=== PATIENT | female | born 1990 | race Caucasian/White ===

== ENCOUNTER 2016-07-11 16:13 | Outpatient (CLI) | payer OTHER ==
[~2016-07-11] VITALS: Ht 149.9 cm; Wt 78.5 kg
[2016-07-11 16:25] VITALS: Ht 149.9 cm; Wt 78.5 kg
[2016-07-11 16:27] VITALS: BP 136/73; PULSE 100; RESP 18
--- NOTE | 2016-07-11 16:59 | RADRPT ---
PROCEDURE: US OB biophysical profile. CLINICAL INDICATION: decreased movements TECHNIQUE: Multiple sonographic images of the pelvis were obtained. The images were reviewed on a PACS workstation. COMPARISON: No prior studies are available for comparison. FINDINGS: There is a single viable intrauterine gestation. Cardiac activity is present with 154 beats per min trinh. There is a vertex presentation. The placenta is anterior. There is no evidence of placental abruption. There is a normal amount of amniotic fluid with an CARLA = 18.7 cm. Biophysical profile: movement 2/2 tone 2/2. breathing 2/2 CARLA 2/2 Total 10/01 RPTAT: AA . IMPRESSION: Normal biophysical profile. . .Bubba Duran MD, MD Date Time Electronically viewed and signed by .Bubba Duran MD, MD on 07/11/2016 16:59 .S/
[2016-07-11 17:25] LABS: ALBUMIN 3.4 g/dl (3.3-4.9); INR 0.91; PROTIME 12.2 Sec (12.2-14.2)
[2016-07-11 17:26] LABS: PARTIAL THROMBOPLASTIN TIME 35.6 Sec (25.0-35.0); POTASSIUM 4.1 mmol/L (3.5-5.1)
[2016-07-11 17:28] LABS: BILIRUBIN,INDIRECT 0.1 mg/dl (0-1.1); BILIRUBIN,TOTAL 0.1 mg/dl (0.2-1.3); CREATININE 0.57 mg/dl (0.44-1.00); TOTAL PROTEIN 6.8 g/dl (6.1-8.1)
[2016-07-11 17:29] LABS: CALCIUM 8.9 mg/dl (8.4-10.2); URIC ACID 3.6 mg/dl (3.1-7.9)
--- NOTE | 2016-07-11 19:06 | QN ---
Documentation Comment Laboratory Tests Test 07/11/16 16:50 Prothrombin Time 12.2Sec Prothrombin Time Ratio 1.0 INR International Normalized Ratio 0.91 Activated Partial Thromboplast Time 35.6Sec Sodium Level 137mmol/L Potassium Level 4.1mmol/L Chloride Level 103mmol/L Carbon Dioxide Level 22mmol/L Anion Gap 16 Blood Urea Nitrogen 9mg/dl Creatinine 0.57mg/dl Glucose Level 124mg/dl Uric Acid 3.6mg/dl Calcium Level 8.9mg/dl Total Bilirubin 0.1mg/dl Direct Bilirubin 0.00mg/dl Indirect Bilirubin 0.1mg/dl Aspartate Amino Transf (AST/SGOT) 20IU/L Alanine Aminotransferase (ALT/SGPT) 30IU/L Alkaline Phosphatase 146IU/L Total Protein 6.8g/dl Albumin 3.4g/dl Globulin 3.40g/dl Albumin/Globulin Ratio 1.00 This is a26 years old female 1 para 0 EDC August 31, 2016 came to the triage unit with chief complaint of chest and abdominal itching started 3 or 4 days ago and it seems getting worse, on admission bpp. 10/01 CMP within normal blood drawn for bile acid the results want be available for 5-6 days possibility of cholestasis of discussed with her, a prescription of ursodiol 300 mg 3 times daily, also recommended to try Benadryl 25 mg 3 times daily, return to triage on July 13 to repeat BPP. CAMILLE KEMP MD July 11, 2016 19:05
--- NOTE | 2016-07-11 19:34 | TRIAGE ---
OB Triage Datetime Report Generated by CPN: 07/11/2016 19:34 Datetime: 07/11/2016 18:46 Labor Evaluation Frequency: 0 Monitor Mode: External Pattern: Normal: <= 5 Contractions in 10 Minutes Resting Tone [place]: Relaxed Heart Rate FHR Baseline Rate: 145 FHR Baseline Changes: No Baseline Change Variability: Moderate 6-25 bpm Accelerations: 15X15 Decelerations: None Pain Assessment Pain Scale: 0 Pain Presence: None/Denies Pain Type: N/A Datetime: 07/11/2016 18:00 Maternal Assessment Level of Consciousness: Fully Conscious Headache: Denies Blurred Vision: No Nausea/Vomiting: Denies RUQ Epigastric Pain: Denies Facial Edema: None Labor Evaluation Frequency: X1 Monitor Mode: External Duration (sec)2399: 60 Quality: Mild Pattern: Normal: <= 5 Contractions in 10 Minutes Resting Tone [place]: Relaxed Heart Rate FHR Baseline Rate: 145 Monitor Mode: External US FHR Baseline Changes: No Baseline Change Variability: Moderate 6-25 bpm Accelerations: 15X15 Decelerations: None Pain Assessment Pain Scale: 0 Pain Presence: None/Denies Pain Type: N/A Datetime: 07/11/2016 17:29 Monitor Mode: External Monitor Mode: External US Datetime: 07/11/2016 17:06 Headache: Denies Blurred Vision: No Facial Edema: None Labor Evaluation Frequency: none Pattern: Normal: <= 5 Contractions in 10 Minutes Heart Rate FHR Baseline Rate: 150 Monitor Mode: External US FHR Baseline Changes: No Baseline Change Variability: Moderate 6-25 bpm Accelerations: 15X15 Decelerations: None Category: Category I Pain Presence: None/Denies Vaginal Exam Membrane Status: Intact Datetime: 07/11/2016 16:22 Stage of : OB Triage Maternal Assessment Level of Consciousness: Fully Conscious DTR's/Clonus: DTRs 2+; No Clonus Headache: Denies Blurred Vision: No Respiratory Effort: Unlabored; Regular Rhythm; Equal Expansion Breath Sounds, Left: Clear and Equal Breath Sounds, Right: Clear and Equal Nausea/Vomiting: Denies RUQ Epigastric Pain: Denies Lower Extremities Edema: None Degree: None Upper Extremities Edema: None Degree: None Facial Edema: None Temperature Route: Axillary Fall Risk Assessment History of Falling: (0) No Secondary Diagnosis: (0) No Ambulatory Aid: (0) Bedrest/Nurse Assist IV Therapy: (0) No Gait: (0) Normal/Bedrest/Immobile Mental Status: (0) Oriented to Own Ability Fall Score: 0 Fall Risk Score Definition: No Risk: No action required Labor Evaluation Frequency: denies Monitor Mode: External Heart Rate FHR Baseline Rate: 150 Monitor Mode: External US Pain Assessment Pain Scale: 0 Pain Presence: None/Denies Datetime: 07/11/2016 16:20 Time of Arrival: 07/11/2016 16:20 EGA: 32.5 Arrived By: Ambulatory Arrived From: Home Chief Complaint: itching all ovr her abd, chest and rash Movement: Present Contractions: Denies/Absent Rupture of Membranes: Denies Vaginal Bleeding: None Vaginal Discharge: Denies Recent Sexual Intercouse: Yes Abdominal Trauma: Not Applicable Patient Complaints: Other Time Provider Notified: 07/11/2016 16:35 Provider Notified: Pascual Initial Plan: elías
== END 2016-07-11 19:30 | disposition home or self-care (01) ==
LOC: OBT 16:13 → L-D 16:14 → OBT 19:30
PROVIDERS: ATTEND Obstetrics & Gynecology
DX: O26.893 Other specified pregnancy related conditions, third trimester (principal); R07.9 Chest pain, unspecified; R10.9 Unspecified abdominal pain; Z3A.32 32 weeks gestation of pregnancy
CPT/HCPCS: 76818; 80053; 80076; 83789; 84560; 85610; 85730; G0463

== ENCOUNTER 2016-07-13 09:57 | Outpatient (CLI) | payer OTHER ==
[~2016-07-13] VITALS: Ht 149.9 cm; Wt 77.2 kg
[2016-07-13] MEDS ORDERED: PRENAT PO (10:18)
[2016-07-13] MEDS ORDERED: URSO300C21 PO (10:18)
[2016-07-13 10:19] VITALS: BP 110/64; PULSE 18; RESP 18; Ht 149.9 cm; Wt 77.2 kg
--- NOTE | 2016-07-13 11:50 | RADRPT ---
PROCEDURE: OB ultrasound for biophysical profile CLINICAL INDICATION: Cholestasis. Biophysical profile. . TECHNIQUE: Multiple sonographic images of the pelvis were obtained. Transabdominal view of the gr avid uterus are available for review. The images were reviewed on a PACS workstation. COMPARISON: Ultrasound, 07/11/2016 FINDINGS: breathing movement = 2/2 tone = 2/2 motion = 2/2 CARLA = 2/2 Single intrauterine gestation is identified in cephalic position. heart rate is 126 bpm. Plac enta is anterior without evidence for abruption or previa. CARLA measures 18.2 cm, within normal limi ts. IMPRESSION: 1. Single live intrauterine gestation. 2. Biophysical profile = 8/8. 3. CARLA = 18.2 cm. RPTAT: QQ .Addison Mattson MD, MD Date Time Electronically viewed and signed by .Addison Mattson MD, on 07/13/2016 11:49 .R/
--- NOTE | 2016-07-13 12:35 | QN ---
Documentation Comment 33 years old 33 weeks suspected cholestasis of biophysical profile 8 out of 8 currently patient on Actonel 300 mg 3 times daily recommended biophysical profile 2 times per week follow-up at [facility] CAMILLE KEMP MD July 13, 2016 12:35
--- NOTE | 2016-07-13 12:45 | TRIAGE ---
OB Triage Datetime Report Generated by CPN: 07/13/2016 12:45 Datetime: 07/13/2016 12:00 Stage of : OB Triage Maternal Assessment Level of Consciousness: Fully Conscious Labor Evaluation Frequency: 4UC/HR Monitor Mode: External Duration (sec)2399: 50-110 Quality: Mild Resting Tone [place]: Relaxed Heart Rate FHR Baseline Rate: 145 Monitor Mode: External US Variability: Moderate 6-25 bpm Accelerations: 15X15 Decelerations: Variable Pain Assessment Pain Scale: 0 Pain Presence: None/Denies Pain Goal: 3 Vaginal Exam Membrane Status: Intact Vaginal Bleeding: None Datetime: 07/13/2016 11:00 Stage of : OB Triage Maternal Assessment Level of Consciousness: Fully Conscious Labor Evaluation Frequency: 1UC/HR Monitor Mode: External Duration (sec)2399: 110 Quality: Mild Resting Tone [place]: Relaxed Heart Rate FHR Baseline Rate: 145 Monitor Mode: External US Variability: Moderate 6-25 bpm Accelerations: 15X15 Decelerations: Variable Pain Assessment Pain Scale: 0 Pain Presence: None/Denies Pain Goal: 3 Vaginal Exam Membrane Status: Intact Vaginal Bleeding: None Datetime: 07/13/2016 10:44 Comments: PT SITTING UP, MATERNAL HEART TONES PICKED UP. Datetime: 07/13/2016 10:16 Assessment Type: Triage Maternal Assessment Level of Consciousness: Fully Conscious DTR's/Clonus: DTRs 2+; No Clonus Headache: Denies Blurred Vision: No Respiratory Effort: Unlabored; Regular Rhythm; Equal Expansion Breath Sounds, Left: Clear and Equal Breath Sounds, Right: Clear and Equal Nausea/Vomiting: Denies RUQ Epigastric Pain: Denies Lower Extremities Edema: None Degree: None Upper Extremities Edema: None Degree: None Facial Edema: None Fall Risk Assessment History of Falling: (0) No Secondary Diagnosis: (0) No Ambulatory Aid: (0) Bedrest/Nurse Assist IV Therapy: (0) No Gait: (0) Normal/Bedrest/Immobile Mental Status: (0) Oriented to Own Ability Fall Score: 0 Fall Risk Score Definition: No Risk: No action required Datetime: 07/13/2016 10:15 Time of Arrival: 07/13/2016 09:57 EGA: 33.0 Arrived By: Ambulatory Arrived From: Home Chief Complaint: PT HERE FOR NST/BPP FOR CHOLESTASIS Movement: Present Contractions: Denies/Absent Rupture of Membranes: Ruptured Vaginal Bleeding: None Vaginal Discharge: Denies Recent Sexual Intercouse: Denies Abdominal Trauma: Not Applicable Patient Complaints: None Time Provider Notified: 07/13/2016 10:30 Provider Notified: [facility] Initial Plan: BPP/NST Datetime: 07/13/2016 10:14 Monitor Mode: External Monitor Mode: External US Datetime: 07/13/2016 10:13 Monitor Mode: External Monitor Mode: External US Datetime: 07/11/2016 16:22 Fall Score: 0 Fall Risk Score Definition: No Risk: No action required Datetime: 07/11/2016 16:20 EGA: 32.5
== END 2016-07-13 12:44 | disposition home or self-care (01) ==
LOC: OBT 09:57 → L-D 09:57 → OBT 12:44
PROVIDERS: ATTEND Obstetrics & Gynecology
DX: O26.893 Other specified pregnancy related conditions, third trimester (principal); Z3A.33 33 weeks gestation of pregnancy
CPT/HCPCS: 76818; G0463

== ENCOUNTER 2016-07-14 22:04 | Outpatient (CLI) | payer OTHER ==
[~2016-07-14] VITALS: Ht 149.9 cm; Wt 66.2 kg
[~2016-07-14 22:04] MED LIST: PRENAT PO; URSO300C21 PO
[2016-07-14 23:27] VITALS: Ht 149.9 cm; Wt 66.2 kg
[2016-07-14 23:28] VITALS: BP 130/73; PULSE 105; RESP 18
--- NOTE | 2016-07-14 23:55 | HP ---
Date/Time of Note Date/Time of Note DATE: 07/14/16 TIME: 23:49 OB - History Hx of Present Free Text/Dictation 26 YO with IUP at 33 weeks who reports with pelvic pressure, but she denies feeling any discomfort since she came to triage. she denies feeling UCs, vaginal bleeding or passage of water per vagina. she reports she developed itching and she was started on Actigall and Benadryl. she has appt today for APT and f/u with Dr. Garner. her itching has resolved as well. Care: Good Care Ultrasounds: Normal mid trimester US Obstetrical Complications: Other (? Cholestasis ) Medical Complications: None Past Family/Social History * Past Medical, Surgical, Family and Obstetric Histories reviewed from chart. OB Admission Exam Vital Signs Vital Signs Vital Signs Date Time Temp Pulse Resp B/P Pulse Ox O2 Delivery O2 Flow Rate FiO2 07/14/16 23:28 99.2 105 18 130/73 Room Air Physical Exam HEENT: WNL Heart: Rhythm Normal Lungs: Clear, Equal Abdomen: WNL Extremities: Normal Reflexes: Normal Cervical Dilatation: None Effacement: 0% Station: -3 Membranes: Intact OB Assessment/Plan Other Assessment: not in labor Plan: Expectant Management Other plan: I offered the patient to be monitored tonight, but she would like to go home SHANTELLE SLOAN MD July 14, 2016 23:55
--- NOTE | 2016-07-15 00:06 | TRIAGE ---
OB Triage Datetime Report Generated by CPN: 07/15/2016 00:06 Datetime: 07/15/2016 00:00 Stage of : OB Triage Datetime: 07/14/2016 23:50 Vaginal Exam Dilatation (cms): 0.0 Effacement (%): 0 Station: -4 Exam By: GSTRATTON Presentation 'A': Unable to Assess Datetime: 07/14/2016 22:05 Stage of : OB Triage Assessment Type: Triage Time of Arrival: 07/14/2016 22:00 EGA: 33.1 Arrived By: Wheelchair Arrived From: Home Chief Complaint: LOWER ABDOMINAL PAIN Movement: Present Contractions: Denies/Absent Rupture of Membranes: Denies Vaginal Bleeding: None Vaginal Discharge: Denies Recent Sexual Intercouse: Denies Abdominal Trauma: Not Applicable Patient Complaints: None Time Provider Notified: 07/14/2016 23:30 Provider Notified: YASHARPOUR Initial Plan: CALL MD, EFM Maternal Assessment Level of Consciousness: Fully Conscious DTR's/Clonus: DTRs 2+; No Clonus Headache: Denies Blurred Vision: No Respiratory Effort: Unlabored; Regular Rhythm; Equal Expansion Breath Sounds, Left: Clear and Equal Breath Sounds, Right: Clear and Equal Nausea/Vomiting: Denies RUQ Epigastric Pain: Denies Lower Extremities Edema: None Degree: None Upper Extremities Edema: None Degree: None Facial Edema: None Temperature Route: Oral Fall Risk Assessment History of Falling: (0) No Secondary Diagnosis: (0) No Ambulatory Aid: (0) Bedrest/Nurse Assist IV Therapy: (0) No Gait: (0) Normal/Bedrest/Immobile Mental Status: (0) Oriented to Own Ability Fall Score: 0 Fall Risk Score Definition: No Risk: No action required Labor Evaluation Monitor Mode: External Heart Rate Monitor Mode: External US Pain Assessment Pain Scale: 5 Pain Presence: Intermittent Datetime: 07/13/2016 10:16 Fall Score: 0 Fall Risk Score Definition: No Risk: No action required Datetime: 07/13/2016 10:15 EGA: 33.0 Datetime: 07/11/2016 16:22 Fall Score: 0 Fall Risk Score Definition: No Risk: No action required Datetime: 07/11/2016 16:20 EGA: 32.5
== END 2016-07-15 00:05 | disposition home or self-care (01) ==
LOC: OBT 22:04 → L-D 22:05 → OBT 07-15 00:05
PROVIDERS: ATTEND Obstetrics & Gynecology
DX: O26.893 Other specified pregnancy related conditions, third trimester (principal); R10.2 Pelvic and perineal pain; Z3A.33 33 weeks gestation of pregnancy
CPT/HCPCS: G0463

== ENCOUNTER 2016-07-16 08:24 | Outpatient (CLI) | payer OTHER ==
[~2016-07-16] VITALS: Ht 149.9 cm; Wt 77.6 kg
[2016-07-16 08:31] VITALS: Ht 149.9 cm; Wt 77.6 kg
[2016-07-16 08:32] VITALS: BP 139/71
--- NOTE | 2016-07-16 10:39 | RADRPT ---
PROCEDURE: US OB biophysical profile. CLINICAL INDICATION: decreased movements, abdominal pain TECHNIQUE: Multiple sonographic images of the pelvis were obtained. The images were reviewed on a PACS workstation. COMPARISON: 07/13/2016 FINDINGS: There is a single viable intrauterine gestation. Cardiac activity is present with 148 beats per min [place]. There is a vertex presentation. The placenta is anterior. There is no evidence of placental abruption. There is a normal amount of amniotic fluid with an CARLA = 10.7 cm. Biophysical profile: movement 2/2 tone 2/2. breathing 2/2 CARLA 2/2 Total 10/01 RPTAT: AA . IMPRESSION: Normal biophysical profile. . .Bubba Duran MD, MD Date Time Electronically viewed and signed by .Bubba Duran MD, MD on 07/16/2016 10:39 .S/
--- NOTE | 2016-07-16 10:53 | TRIAGE ---
OB Triage Datetime Report Generated by CPN: 07/16/2016 10:52 Datetime: 07/16/2016 10:23 Comments: US AT BEDSIDE Datetime: 07/16/2016 09:55 Time of Arrival: 07/16/2016 09:31 EGA: 33.3 Arrived By: Ambulatory Arrived From: Home Movement: Present Rupture of Membranes: Denies Datetime: 07/16/2016 09:18 Stage of : OB Triage Frequency: 0 Monitor Mode: External Pattern: Normal: <= 5 Contractions in 10 Minutes Resting Tone [place]: Relaxed FHR Baseline Rate: 145 Monitor Mode: External US Accelerations: 15X15 Decelerations: None Category: Category I Pain Presence: None/Denies Pain Type: N/A Datetime: 07/16/2016 08:35 Stage of : OB Triage Assessment Type: Triage Level of Consciousness: Fully Conscious DTR's/Clonus: DTRs 2+; No Clonus Headache: Denies Blurred Vision: No Respiratory Effort: Unlabored; Regular Rhythm; Equal Expansion Breath Sounds, Left: Clear and Equal Breath Sounds, Right: Clear and Equal Nausea/Vomiting: Denies RUQ Epigastric Pain: Denies Lower Extremities Edema: None Degree: None Upper Extremities Edema: None Degree: None Facial Edema: None Temperature Route: Oral History of Falling: (0) No Secondary Diagnosis: (0) No Ambulatory Aid: (0) Bedrest/Nurse Assist IV Therapy: (0) No Gait: (0) Normal/Bedrest/Immobile Mental Status: (0) Oriented to Own Ability Fall Score: 0 Fall Risk Score Definition: No Risk: No action required Monitor Mode: External FHR Baseline Rate: 145 Monitor Mode: External US Variability: Moderate 6-25 bpm Accelerations: 15X15 Decelerations: None Category: Category I Pain Scale: 0 Pain Presence: None/Denies Pain Type: N/A Datetime: 07/16/2016 08:34 Time of Arrival: 07/16/2016 08:19 EGA: 33.3 Arrived By: Ambulatory Arrived From: Home Chief Complaint: F/UP NST, BILE ACIDS RESULTS Movement: Present Contractions: Denies/Absent Rupture of Membranes: Denies Vaginal Bleeding: None Vaginal Discharge: Denies Recent Sexual Intercouse: Denies Abdominal Trauma: Not Applicable Patient Complaints: None Time Provider Notified: 07/16/2016 09:17 Provider Notified: DR. KEMP Initial Plan: FM, CALL Datetime: 07/14/2016 23:00 Frequency: 5-7 Monitor Mode: External Duration (sec)2399: 60-90 Pattern: Normal: <= 5 Contractions in 10 Minutes FHR Baseline Rate: 155 Monitor Mode: External US FHR Baseline Changes: No Baseline Change Variability: Moderate 6-25 bpm Decelerations: None
--- NOTE | 2016-07-16 11:04 | TRIAGE ---
OB Triage Datetime Report Generated by CPN: 07/16/2016 11:03 Datetime: 07/16/2016 09:55 EGA: 33.3 Datetime: 07/16/2016 08:35 Fall Score: 0 Fall Risk Score Definition: No Risk: No action required Datetime: 07/16/2016 08:34 EGA: 33.3
--- NOTE | 2016-09-12 18:34 | PN ---
Triage Information Date/Time 07/16/16 Weeks of Gestation 33 : 1 Para: 0 Assessment/Plan CHOLESTASIS CAMILLE KEMP MD Sep 12, 2016 18:34
== END 2016-07-16 11:05 | disposition home or self-care (01) ==
LOC: OBT 08:24 → L-D 08:24 → OBT 11:05
PROVIDERS: ATTEND Obstetrics & Gynecology
DX: O26.613 Liver and biliary tract disorders in pregnancy, third trimester (principal); K83.1 Obstruction of bile duct; Z3A.33 33 weeks gestation of pregnancy
CPT/HCPCS: 76818; Z7500; G0463

== ENCOUNTER 2016-07-18 09:36 | Outpatient (CLI) | payer OTHER ==
[~2016-07-18] VITALS: Ht 149.9 cm; Wt 77.6 kg
[2016-07-18 09:53] VITALS: Ht 149.9 cm; Wt 77.6 kg
[2016-07-18 09:54] VITALS: BP 123/68; PULSE 87; RESP 18
--- NOTE | 2016-07-18 10:27 | RADRPT ---
PROCEDURE: OB ultrasound for biophysical profile CLINICAL INDICATION: Cholestasis. TECHNIQUE: Multiple sonographic images of the pelvis were obtained. Transabdominal view of the gr avid uterus are available for review. The images were reviewed on a PACS workstation. COMPARISON: 07/16/2016 FINDINGS: breathing movement = 2/2 tone = 2/2 motion = 2/2 Quantitative amniotic fluid volume = 2/2 CARLA = 18.2 cm Single live intrauterine with cardiac activity at 148 beats per minute. There is a anterior placenta without previa. IMPRESSION: 1. Single living intrauterine gestation in cephalic position. 2. Biophysical profile = 8/8. 3. CARLA = 18.2 cm. RPTAT: [facility] Physician Alvina Date Time Electronically viewed and signed by Physician Alvina on 07/18/2016 10:27 /
--- NOTE | 2016-07-18 10:39 | TRIAGE ---
OB Triage Datetime Report Generated by CPN: 07/18/2016 10:39 Datetime: 07/18/2016 09:52 Assessment Type: Triage Maternal Assessment Level of Consciousness: Fully Conscious DTR's/Clonus: DTRs 2+; No Clonus Headache: Denies Blurred Vision: No Respiratory Effort: Unlabored; Regular Rhythm; Equal Expansion Breath Sounds, Left: Clear and Equal Breath Sounds, Right: Clear and Equal Nausea/Vomiting: Denies RUQ Epigastric Pain: Denies Lower Extremities Edema: None Degree: None Upper Extremities Edema: None Degree: None Facial Edema: None Fall Risk Assessment History of Falling: (0) No Secondary Diagnosis: (0) No Ambulatory Aid: (0) Bedrest/Nurse Assist IV Therapy: (0) No Gait: (0) Normal/Bedrest/Immobile Mental Status: (0) Oriented to Own Ability Fall Score: 0 Fall Risk Score Definition: No Risk: No action required Datetime: 07/18/2016 09:51 Time of Arrival: 07/18/2016 09:30 EGA: 33.5 Arrived By: Ambulatory Arrived From: Home Chief Complaint: PT HERE FOR NST/BPP FOR CHOLESTASIS OF Movement: Present Contractions: Denies/Absent Rupture of Membranes: Denies Vaginal Bleeding: None Vaginal Discharge: Denies Recent Sexual Intercouse: Denies Abdominal Trauma: Not Applicable Patient Complaints: None Time Provider Notified: 07/18/2016 10:30 Provider Notified: JUSTO Initial Plan: NST/BPP Datetime: 07/18/2016 09:48 Labor Evaluation Monitor Mode: External Heart Rate Monitor Mode: External US Datetime: 07/16/2016 09:55 EGA: 33.3 Datetime: 07/16/2016 08:35 Fall Score: 0 Fall Risk Score Definition: No Risk: No action required Datetime: 07/16/2016 08:34 EGA: 33.3 Datetime: 07/14/2016 22:05 EGA: 33.1 Fall Score: 0 Fall Risk Score Definition: No Risk: No action required Datetime: 07/13/2016 10:16 Fall Score: 0 Fall Risk Score Definition: No Risk: No action required Datetime: 07/13/2016 10:15 EGA: 33.0 Datetime: 07/11/2016 16:22 Fall Score: 0 Fall Risk Score Definition: No Risk: No action required Datetime: 07/11/2016 16:20 EGA: 32.5
--- NOTE | 2016-07-18 10:41 | CONS ---
Date/Time of Note Date/Time of Note DATE: 07/18/16 TIME: 10:36 Assessment/Plan Assessment/Plan Additional Assessment/Plan 26 y/o at 33w 5d with itching, bile acids normal. NST reactive, BPP normal. -discharge home with copy of results -f/u with clinic Consultation Date/Type/Reason Admit Date/Time Reason for Consultation Itching Hx of Present Illness 26 y/o at 33w 5d who is here for follow-up on itching. Patient reports intense itching on abdomen. She was started on Actigall while bile acids were pending, which came back normal today. Denies LOF, VB, UCs/cramping, dysuria. +FM. Getting PNC, no complications. Per HPI. Other systems negative. Past Medical History Medical History: no pertinent history Past Surgical History Past Surgical Hx: no surgical history Social History Denies habits. Smoking Status: Never smoker Exam/Review of Systems Vital Signs Vitals Vital Signs Date Time Temp Pulse Resp B/P Pulse Ox O2 Delivery O2 Flow Rate FiO2 07/18/16 09:54 98.0 87 18 123/68 Room Air Exam Gen: NAD HEENT: NCAT CV: RRR Pulm: CTAB Abd: gravid, NT Back: no CVAT Ext: NT FHT: reactive [place]: irritability Bile acids: normal BPP: 8 ROSEMARY MA July 18, 2016 10:41
== END 2016-07-18 10:45 | disposition home or self-care (01) ==
LOC: OBT 09:36 → L-D 09:37 → OBT 10:45
PROVIDERS: ATTEND Obstetrics & Gynecology
DX: O26.893 Other specified pregnancy related conditions, third trimester (principal); L29.9 Pruritus, unspecified; Z3A.33 33 weeks gestation of pregnancy
CPT/HCPCS: 76818; Z7500; G0463

== ENCOUNTER 2016-07-27 05:58 | Outpatient (CLI) | payer OTHER ==
[~2016-07-27] VITALS: Ht 149.9 cm; Wt 78.0 kg
[2016-07-27 06:17] VITALS: Ht 149.9 cm; Wt 78.0 kg
[2016-07-27 06:19] VITALS: BP 121/76; PULSE 91; RESP 18
[2016-07-27 07:36] LABS: ALBUMIN/GLOBULIN RATIO 1.42; BILIRUBIN,INDIRECT 0.1 mg/dl (0-1.1); BILIRUBIN,TOTAL 0.1 mg/dl (0.2-1.3); CALCIUM 9.1 mg/dl (8.4-10.2); CREATININE 0.5 mg/dl (0.44-1.00); TOTAL PROTEIN 6.8 g/dl (6.1-8.1)
--- NOTE | 2016-07-27 07:43 | RADRPT ---
PROCEDURE: Biophysical profile. CLINICAL INDICATION: Pelvic pain. TECHNIQUE: Multiple sonographic images of the pelvis were obtained with transabdominal technique. COMPARISON: 07/18/2016. FINDINGS: There is a single living intrauterine gestation with the fetus in a vertex position. The placenta i s anterior in location, grade II. heart tones of 137 beats per minute are identified. There i s normal amniotic fluid volume with an CARLA of 15.5 cm. breathing movements = 2 Gross body movements = 2 tone = 2 Qualitative AFV = 2 IMPRESSION: Biophysical profile 8 out of 8. .Ahmet Villarreal MD, Date Time Electronically viewed and signed by .Ahmet Villarreal MD, on 07/27/2016 07:42 .T/
--- NOTE | 2016-07-27 08:14 | QN ---
Documentation Comment Laborist SARA/Dr Garner 26 y.o. G1 with an IUP at 35weeks who came in with severe total body itching. She also vomited x 1 but feels fine now. Of note the pt had this itching before and was Actigall but the total bile acids were normal and the itching resolved until now. +FM. No VB or leaking. PMHx: none. PSHx: none. NKDA. BP 121/76 T= 98.2 NST:Baseline 140 bpm with accels to 160 bpm. No decels. No UC's. BPP 8/8 with an CARLA of 15.5 cm. VTX. ALT/AST 46/23 Total bili 0.1 A: IUP at 35 weeks. Cholestasis. P: Total bile acids pending. Continue with NST clinic twice a week. Rx given for Actigall 300mg BID. kick counts reviewed. LETA JIMENEZ MD Jul 27, 2016 08:14
--- NOTE | 2016-07-27 08:19 | TRIAGE ---
OB Triage Datetime Report Generated by CPN: 07/27/2016 08:18 Datetime: 07/27/2016 06:42 Stage of : OB Triage Monitor Mode: External Quality: Mild Resting Tone [place]: Relaxed Heart Rate FHR Baseline Rate: 140 Monitor Mode: External US FHR Baseline Changes: No Baseline Change Variability: Moderate 6-25 bpm Accelerations: 15X15 Decelerations: None Category: Category I Datetime: 07/27/2016 06:32 Time of Arrival: 07/27/2016 05:55 EGA: 35.0 Arrived By: Ambulatory Arrived From: Home Chief Complaint: w/ hx cholestasis but states had resolved to OB triage w/ c/o emesis x1 and itching since yesterday Movement: Present Contractions: Denies/Absent Rupture of Membranes: Denies Vaginal Bleeding: None Vaginal Discharge: Denies Recent Sexual Intercouse: Denies Abdominal Trauma: Not Applicable Patient Complaints: Nausea; Vomiting; Other Time Provider Notified: 07/27/2016 06:42 Provider Notified: Dr Trevino Initial Plan: EFM Datetime: 07/27/2016 06:06 Stage of : OB Triage Maternal Assessment Level of Consciousness: Fully Conscious Headache: Denies Blurred Vision: No Respiratory Effort: Unlabored Nausea/Vomiting: Hx of Nausea/Vomiting RUQ Epigastric Pain: Denies Facial Edema: None Labor Evaluation Frequency: placed Monitor Mode: External Resting Tone [place]: Relaxed Monitor Mode: External US Comments: [id number] Pain Assessment Pain Scale: 0 Pain Presence: None/Denies Pain Type: N/A Datetime: 07/18/2016 10:33 Stage of : OB Triage Maternal Assessment Level of Consciousness: Fully Conscious Labor Evaluation Frequency: NONE Monitor Mode: External Resting Tone [place]: Relaxed Heart Rate FHR Baseline Rate: 145 Monitor Mode: External US Variability: Moderate 6-25 bpm Accelerations: 15X15 Decelerations: None Category: Category I Pain Assessment Pain Scale: 0 Pain Goal: 3 Vaginal Exam Membrane Status: Intact Vaginal Bleeding: None Datetime: 07/18/2016 09:52 Fall Risk Assessment Fall Score: 0 Fall Risk Score Definition: No Risk: No action required Datetime: 07/18/2016 09:51 EGA: 33.5 Datetime: 07/16/2016 09:55 EGA: 33.3 Datetime: 07/16/2016 08:35 Fall Risk Assessment Fall Score: 0 Fall Risk Score Definition: No Risk: No action required Datetime: 07/16/2016 08:34 EGA: 33.3 Datetime: 07/14/2016 22:05 EGA: 33.1 Fall Risk Assessment Fall Score: 0 Fall Risk Score Definition: No Risk: No action required Datetime: 07/13/2016 10:16 Fall Risk Assessment Fall Score: 0 Fall Risk Score Definition: No Risk: No action required Datetime: 07/13/2016 10:15 EGA: 33.0 Datetime: 07/11/2016 16:22 Fall Risk Assessment Fall Score: 0 Fall Risk Score Definition: No Risk: No action required Datetime: 07/11/2016 16:20 EGA: 32.5
[2016-08-01 14:52] LABS: CHENODEOXYCHOLIC ACID 1.7 umol/L (< OR = 3.1); CHOLIC ACID 2.5 umol/L (< OR = 1.8); DEOXYCHOLIC ACID 0.6 umol/L (< OR = 2.4); TOTAL BILE ACIDS 4.8 umol/L (< OR = 6.8)
== END 2016-07-27 08:20 | disposition home or self-care (01) ==
LOC: OBT 05:58 → L-D 05:59 → OBT 08:20
PROVIDERS: ATTEND Obstetrics & Gynecology
DX: O26.613 Liver and biliary tract disorders in pregnancy, third trimester (principal); K83.1 Obstruction of bile duct; Z3A.35 35 weeks gestation of pregnancy
CPT/HCPCS: 76818; 80053; 83789; Z7500; G0463

== ENCOUNTER 2016-07-28 11:59 | Outpatient (CLI) | payer OTHER ==
[~2016-07-28] VITALS: Ht 149.9 cm; Wt 77.9 kg
[2016-07-28 12:02] VITALS: Ht 149.9 cm; Wt 77.9 kg
--- NOTE | 2016-07-28 13:00 | TRIAGE ---
OB Triage Datetime Report Generated by CPN: 07/28/2016 13:00 Datetime: 07/28/2016 12:41 Stage of : OB Triage Frequency: none Pattern: Normal: <= 5 Contractions in 10 Minutes Resting Tone [place]: Relaxed FHR Baseline Rate: 140 Monitor Mode: External US FHR Baseline Changes: No Baseline Change Variability: Moderate 6-25 bpm Accelerations: 15X15 Decelerations: None Category: Category I Datetime: 07/28/2016 12:14 Stage of : OB Triage Level of Consciousness: Fully Conscious DTR's/Clonus: DTRs 2+; No Clonus Headache: Denies Blurred Vision: No Respiratory Effort: Unlabored; Regular Rhythm; Equal Expansion Breath Sounds, Left: Clear and Equal Breath Sounds, Right: Clear and Equal Nausea/Vomiting: Denies RUQ Epigastric Pain: Denies Lower Extremities Edema: None Degree: None Upper Extremities Edema: None Degree: None Facial Edema: None Temperature Route: Axillary History of Falling: (0) No Secondary Diagnosis: (0) No Ambulatory Aid: (0) Bedrest/Nurse Assist IV Therapy: (0) No Gait: (0) Normal/Bedrest/Immobile Mental Status: (0) Oriented to Own Ability Fall Score: 0 Fall Risk Score Definition: No Risk: No action required Frequency: none Monitor Mode: External FHR Baseline Rate: 150 Monitor Mode: External US FHR Baseline Changes: No Baseline Change Variability: Absent - Undetectable Accelerations: 15X15 Decelerations: None Pain Scale: 0 Datetime: 07/28/2016 12:09 Time of Arrival: 07/28/2016 11:55 EGA: 35.1 Arrived By: Ambulatory Arrived From: Home Chief Complaint: n/v Movement: Present Contractions: Denies/Absent Rupture of Membranes: Denies Vaginal Bleeding: None Vaginal Discharge: Denies Recent Sexual Intercouse: Denies Abdominal Trauma: Not Applicable Patient Complaints: None Time Provider Notified: 07/28/2016 12:41 Provider Notified: Dr krishnamurthy Initial Plan: SANCHEZ/ VAMSHI
--- NOTE | 2016-07-28 13:09 | RADRPT ---
PROCEDURE: OB ultrasound limited for biophysical profile . CLINICAL INDICATION: Cholestasis TECHNIQUE: Multiple sonographic images of the pelvis were obtained. Transabdominal view of the gr avid uterus are available for review. The images were reviewed on a PACS workstation. COMPARISON: 07/27/2016 FINDINGS: breathing movement = 2/2 tone = 2/2 motion = 2/2 Amniotic fluid volume = 2/2 CARLA = 9.3 cm Cephalic presentation. Heart rate 139 beats per minute. Anterior grade 1 placenta. IMPRESSION: 1. Single viable intrauterine gestation. 2. Biophysical profile = 8/8. 3. CARLA = 9.30 cm. RPTAT: QQ .Tee Santos MD, MD Date Time Electronically viewed and signed by .Tee Santos MD, on 07/28/2016 13:08 .L/
--- NOTE | 2016-07-28 13:12 | RADRPT ---
PROCEDURE: US limited OB for weight CLINICAL INDICATION: weight TECHNIQUE: Multiple sonographic images of the pelvis were obtained. Transabdominal imaging only w as performed. The images were reviewed on a PACS workstation. COMPARISON: No prior studies are available for comparison. FINDINGS: There is a single viable intrauterine gestation. Cardiac activity is present with 146 beats per minute. There is a cephalic presentation. Measurements were made in order to determine age. The results are as follows: BPD = 8.5 cm. HC = 31.4 cm. AC = 31.4 cm. FL = 6.8 cm. Estimated gestational age of approximately 35 weeks 0 days. The estimated date of delivery is 09/01/2016. The EFW = 2593 g. Growth percentile 46 %. The placenta is anterior grade 1. There is no evidence for an abruption or placenta previa. IMPRESSION: 1. Single viable intrauterine gestation of approximately 35 weeks 0 days. 2. Estimated weight is 2593 grams with a growth percentile of 46 %. RPTAT: QQ .Tee Santos MD, Date Time Electronically viewed and signed by .Tee Santos MD, on 07/28/2016 13:11 .L/
--- NOTE | 2016-07-28 13:44 | QN ---
Documentation Comment 26 years old 1 para 0 35 weeks and 4 days came to triage unit, complaining a one time vomiting and mild lower extremity H this patient has been getting her care at [facility] and was sent to the [facility] triage unit with suspected diagnosis of cholestasis of with normal liver enzymes report of the bile acid was sent out on July 27 not available previous report bile acid were within normal currently patient on ursodiol 300 mg 3 times daily, prescription for nausea Reglan 10 mg every 6 hours with diet instruction, biophysical profile 2 times per week, report of today's biophysical 12/03, patient discharged to the care of [facility] , to continue biophysical profile 2 times per week CAMILLE KEMP MD Jul 28, 2016 13:42
== END 2016-07-28 13:10 | disposition home or self-care (01) ==
LOC: L-D 11:59 → OBT 11:59
PROVIDERS: ATTEND Obstetrics & Gynecology
DX: O21.2 Late vomiting of pregnancy (principal); O26.893 Other specified pregnancy related conditions, third trimester; Z3A.35 35 weeks gestation of pregnancy
CPT/HCPCS: 76815; 76818; Z7500; G0463

== ENCOUNTER 2016-08-02 21:46 | Outpatient (CLI) | payer OTHER ==
[~2016-08-02] VITALS: Ht 149.9 cm; Wt 79.4 kg
[2016-08-02 22:00] VITALS: Ht 149.9 cm; Wt 79.4 kg
[2016-08-02 22:01] VITALS: BP 129/77; PULSE 85; RESP 18
[2016-08-02] MEDS ORDERED: DIPH25CA77 PO (22:05)
[2016-08-02] MEDS ORDERED: LACTATED RINGER'S 1,000 ML IV SCH (22:38)
[2016-08-02] MEDS ORDERED: DIPHENHYDRAMINE 50 MG INJ IV ONE (23:00)
--- NOTE | 2016-08-02 23:06 | RADRPT ---
PROCEDURE: OB ultrasound for biophysical profile CLINICAL INDICATION: Biophysical profile. . TECHNIQUE: Multiple sonographic images of the pelvis were obtained. Transabdominal views are obta ined. COMPARISON: 08/02/2016 FINDINGS: Single intrauterine gestation. Presentation: Cephalic. Placenta: Anterior. No evidence of placental abruption. No evidence of placenta previa. breathing movement = 2/2 tone = 2/2 motion = 2/2 CARLA = 2/2 CARLA = 11.8 cm heart rate: 148 beats per minute IMPRESSION: Single intrauterine gestation. Biophysical profile 10/01 RPTAT: AADD .Ralph Null MD, MD Date Time Electronically viewed and signed by .Ralph Null MD, on 08/02/2016 23:05 .B/
--- NOTE | 2016-08-02 23:18 | PN ---
Triage Information Date/Time 08/02/16 11:10p Weeks of Gestation [id number] : 1 Para: 0 Diabetes: none Hypertention: none Additional information known cholestasis of , mildly elevated bile acids. bilp chol 2.5 (nml 1.8) on actigall TID and benadryl prn patient came in w c/o itching and mild ctx Objective Vital Signs Date Time Temp Pulse Resp B/P Pulse Ox O2 Delivery O2 Flow Rate FiO2 08/02/16 22:01 97.7 85 18 129/77 Room Air Results/Medications Medications Current Medications Lactated Ringer's (Lr) 1,000 ml @ 125 mls/hr Q8H IV ; Start 08/02/16 at 22:38 Imaging Results sono: BPP 10/01, CARLA 11.8 FHT- Cat I [place]- irreg ctx Assessment/Plan 26 yo P0 @ [id number], w known cholestasis, c/o itching and ctx - reassuring status - IV benadryl for itching - BPP 10/01 - will d/c home; patient to f/u w PMD, likely delivery plan at 37 wks for cholestasis SINGH SALTER MD Aug 02, 2016 23:18
--- NOTE | 2016-08-02 23:52 | TRIAGE ---
OB Triage Datetime Report Generated by CPN: 08/02/2016 23:52 Datetime: 08/02/2016 22:54 Heart Rate Monitor Mode: External US Datetime: 08/02/2016 22:31 Stage of : OB Triage Datetime: 08/02/2016 22:05 Assessment Type: Triage Maternal Assessment Level of Consciousness: Fully Conscious DTR's/Clonus: DTRs 2+; No Clonus Headache: Denies Blurred Vision: No Respiratory Effort: Unlabored; Regular Rhythm; Equal Expansion Breath Sounds, Left: Clear and Equal Breath Sounds, Right: Clear and Equal Nausea/Vomiting: Denies RUQ Epigastric Pain: Denies Lower Extremities Edema: None Degree: None Upper Extremities Edema: None Degree: None Facial Edema: None Fall Risk Assessment History of Falling: (0) No Secondary Diagnosis: (0) No Ambulatory Aid: (0) Bedrest/Nurse Assist IV Therapy: (0) No Gait: (0) Normal/Bedrest/Immobile Mental Status: (0) Oriented to Own Ability Fall Score: 0 Fall Risk Score Definition: No Risk: No action required Datetime: 08/02/2016 22:00 Time of Arrival: 08/02/2016 21:27 EGA: 35.6 Arrived By: Ambulatory Arrived From: Home Chief Complaint: Itching, UC's. Movement: Present Contractions: Occasional Rupture of Membranes: Denies Vaginal Bleeding: None Vaginal Discharge: Denies Recent Sexual Intercouse: Denies Abdominal Trauma: Not Applicable Patient Complaints: Other Initial Plan: EFM X2, BPP, IV Benadryl Datetime: 07/28/2016 12:14 Fall Score: 0 Fall Risk Score Definition: No Risk: No action required Datetime: 07/28/2016 12:09 EGA: 35.1 Datetime: 07/27/2016 06:32 EGA: 35.0 Datetime: 07/18/2016 09:52 Fall Score: 0 Fall Risk Score Definition: No Risk: No action required Datetime: 07/18/2016 09:51 EGA: 33.5 Datetime: 07/16/2016 09:55 EGA: 33.3 Datetime: 07/16/2016 08:35 Fall Score: 0 Fall Risk Score Definition: No Risk: No action required Datetime: 07/16/2016 08:34 EGA: 33.3 Datetime: 07/14/2016 22:05 EGA: 33.1 Fall Score: 0 Fall Risk Score Definition: No Risk: No action required Datetime: 07/13/2016 10:16 Fall Score: 0 Fall Risk Score Definition: No Risk: No action required Datetime: 07/13/2016 10:15 EGA: 33.0 Datetime: 07/11/2016 16:22 Fall Score: 0 Fall Risk Score Definition: No Risk: No action required Datetime: 07/11/2016 16:20 EGA: 32.5
== END 2016-08-02 23:46 | disposition home or self-care (01) ==
LOC: OBT 21:46 → L-D 21:46 → OBT 23:46
PROVIDERS: ATTEND Obstetrics & Gynecology
DX: O26.613 Liver and biliary tract disorders in pregnancy, third trimester (principal); O26.893 Other specified pregnancy related conditions, third trimester; L29.9 Pruritus, unspecified; Z3A.35 35 weeks gestation of pregnancy
CPT/HCPCS: 76818; J7120; Z7500; G0463

== ENCOUNTER 2016-08-06 11:49 | Inpatient (IN) | payer OTHER ==
[~2016-08-06] VITALS: Ht 149.9 cm; Wt 78.5 kg
[~2016-08-06 11:49] MED LIST changes: +DIPH25CA77 PO
[2016-08-06 12:07] VITALS: BP 127/85; PULSE 85; Ht 149.9 cm; Wt 78.5 kg
[2016-08-06] MEDS: LACTATED RINGER'S 1,000 ML IV SCH ×2 (14:13→21:19)
[2016-08-06 14:24] LABS: ADD SCAN DIFF NO
[2016-08-06 14:29] LABS: BASOPHIL # 0.1 10^3/ul (0.0-0.1); BASOPHILS % 0.5 % (0.0-2.0); EOSINOPHILS # 0.1 10^3/ul (0.0-0.5); EOSINOPHILS % 0.6 % (0.0-7.0); HEMATOCRIT 33.9 % (37.0-47.0); HEMOGLOBIN 11.3 g/dl (12.0-16.0); LYMPHOCYTES # 2.1 10^3/ul (0.8-2.9); LYMPHOCYTES % 21.3 % (15.0-51.0); MEAN CORPUSCULAR HEMOGLOBIN 30.6 pg (29.0-33.0); MEAN CORPUSCULAR HGB CONC 33.3 g/dl (32.0-37.0); MEAN CORPUSCULAR VOLUME 91.9 fl (82.0-101.0); MEAN PLATELET VOLUME 10.3 fl (7.4-10.4); MONOCYTE # 0.7 10^3/ul (0.3-0.9); MONOCYTES % 7.5 % (0.0-11.0); NEUTROPHIL # 6.7 10^3/ul (1.6-7.5); NEUTROPHILS % 68.4 % (39.0-77.0); NUCLEATED RED BLOOD CELLS% 0.2 /100WBC (0.0-0.0); PLATELET COUNT 331 10^3/UL (140-415); RED BLOOD COUNT 3.69 10^6/ul (4.20-5.40); WHITE BLOOD COUNT 9.8 10^3/ul (4.8-10.8)
[2016-08-06 14:43] LABS: INR 0.95; PARTIAL THROMBOPLASTIN TIME 33.2 Sec (25.0-35.0); PROTIME 12.7 Sec (12.2-14.2)
[2016-08-06 14:48] LABS: ALBUMIN 4.5 g/dl (3.3-4.9); ALBUMIN/GLOBULIN RATIO 1.32; BILIRUBIN,INDIRECT 0.2 mg/dl (0-1.1); BILIRUBIN,TOTAL 0.2 mg/dl (0.2-1.3); CALCIUM 9.6 mg/dl (8.4-10.2); CREATININE 0.51 mg/dl (0.44-1.00); POTASSIUM 4.2 mmol/L (3.5-5.1); TOTAL PROTEIN 7.9 g/dl (6.1-8.1); URIC ACID 3.6 mg/dl (3.1-7.9)
[2016-08-06 15:29] LABS: ADD UMIC YES; UR BILIRUBIN (Dip) NEGATIVE (NEGATIVE); UR BLOOD (Dip) 1+ (NEGATIVE); UR COLOR LT. YELLOW (YELLOW); UR GLUCOSE (Dip) NEGATIVE (NEGATIVE); UR KETONES (Dip) TRACE (NEGATIVE); UR LEUKOCYTE ESTERASE (Dip) TRACE (NEGATIVE); UR NITRITE (Dip) NEGATIVE (NEGATIVE); UR TOTAL PROTEIN (Dip) NEGATIVE (NEGATIVE); UR UROBILINOGEN (Dip) 0.2 E.U./dL (0.1-1.0)
[2016-08-06] MEDS: URSODIOL 300 MG CAP PO SCH (15:40)
[2016-08-06 15:41] LABS: UR CLARITY HAZY (CLEAR)
[2016-08-06 15:42] LABS: UR BACTERIA FEW; UR SQUAMOUS EPITHELIAL CELL MANY
--- NOTE | 2016-08-06 18:14 | HP ---
Date/Time of Note Date/Time of Note DATE: 08/06/16 TIME: 17:45 OB - History Hx of Present Free Text/Dictation This is a 26 years old 1 para 0 EDC August 31, 2016 suspected cholestasis of currently on Actonel 300 mg 3 times daily referred from the clinic today because of one elevated blood pressure her blood pressures in the antepartum unit running 123/84 127/84 pulse of 80 respiration 18 temperature 98.3 24 hours urine collection started today will be ending tomorrow at 1315 at this time patient has no complaint of headache blurry vision epigastric pain or itching patient is on continuous monitoring and heart rate is category 1 Her PIH lab results were within normal except in urinalysis 1+ blood and trace ketone trace leukocyte esterase, her bile acids report of July 30 is within normal Request for perinatology consult Plan pending perinatologist recommendation Chief Complaint: 37 weeks Estimated Due Date: Aug 31, 2016 : 1 Para: 0 Care: Good Care Ultrasounds: Normal mid trimester US Obstetrical Complications: Other (Suspected cholestasis of ) Medical Complications: None Past Family/Social History * Past Medical, Surgical, Family and Obstetric Histories reviewed from chart. Rubella: immune RPR/VDRL: Negative GBS Status: Negative HBsAG: Negative OB Admission Exam Vital Signs Vital Signs Vital Signs Date Time Temp Pulse Resp B/P Pulse Ox O2 Delivery O2 Flow Rate FiO2 08/06/16 12:07 98.3 85 127/85 Physical Exam HEENT: WNL Heart: Rhythm Normal Lungs: Clear, Equal Abdomen: WNL Extremities: Normal Reflexes: Normal Cervical Dilatation: None Effacement: 0% Station: -3 Heart Rate: 130's Accelerations: Accelerations Present Decelerations: No Decelerations Intensity: Mild Last 72 hours Lab Results CBC & BMP 08/06/16 14:00 Liver Function Test 08/06/16 14:00 Alanine Aminotransferase (ALT/SGPT) 27 Albumin 4.5 Alkaline Phosphatase 172 H Aspartate Amino Transf (AST/SGOT) 20 Direct Bilirubin 0.00 Total Protein 7.9 OB Assessment/Plan Reason for admission: other (To finish complete workup for PIH, is kept under close observation and continuous monitoring) Plan: Expectant Management Other plan: To complete PIH workup, 24 hours urine collection for protein and creatinine clearance CAMILLE KEMP MD Aug 06, 2016 18:07
[2016-08-07] MEDS: URSODIOL 300 MG CAP PO SCH ×3 (00:55→20:47)
[2016-08-07] MEDS: LACTATED RINGER'S 1,000 ML IV SCH (05:07)
[2016-08-07 15:33] LABS: SCRET 0.51 mg/dl (0.44-1.00)
--- NOTE | 2016-08-07 17:24 | PN ---
Date/Time of Note Date/Time of Note DATE: 08/07/16 TIME: 17:21 OB Subjective Subjective Subjective Today she is 36 weeks and 4//days has no complaint of itching headache blurry vision epigastric when I saw her she was walking in her room and no complaint, the results of her 24 hours urine collection total volume 9125 and 24 hours urine protein 1277.5, I would request the perinatology consult to discuss her condition and decide for the delivery time. CAMILLE KEMP MD Aug 07, 2016 17:24
[2016-08-07] MEDS ORDERED: AL HYDROX/MG HYDROX/SIMETH 30 ML CUP PO PRN (18:00)
[2016-08-08] MEDS: URSODIOL 300 MG CAP PO SCH ×2 (09:05→21:08)
--- NOTE | 2016-08-08 19:45 | QN ---
Documentation Comment Patient is 1 para 0 at 36 weeks and 5 days of gestation with cholestasis currently on Actigall Patient presented with elevated blood pressures PIH labs within normal limits Currently stable and afebrile Her perinatologist recommendation will consider induction at 37 weeks of gestation Continue with present management MAURICE RICE MD Aug 08, 2016 19:45
--- NOTE | 2016-08-09 06:25 | CONS ---
DATE OF ADMISSION: 08/06/2016 DATE OF CONSULTATION: 08/07/2016 HISTORY OF PRESENT ILLNESS: The patient was transferred to the hospital after she was found at her clinic to have elevated blood pressure in the moderate range, and that was on Friday. She was subse quently admitted, and labs were obtained, preeclampsia labs are normal. A 24-hour urine was resulte d today which shows 9000 mL of urine with 1200 mg of protein. At the hospital, her blood pressures have been all in normal range with the exception of one elevati on of blood pressure in the moderate range. She has been given diagnosis of cholestasis; however, her LFTs are normal and her bile panels are no rmal, so that diagnosis is in question. RECOMMENDATIONS: The patient to be delivered at 37 weeks. She can discharge the patient home with the plan for induction at 37. Preeclampsia precautions should be given to the patient and modified bed rest. Dictated By: JAZZMINE GUERRA/ADELINE Conf#: [id number] DID#: [id number]
[2016-08-09] MEDS: URSODIOL 300 MG CAP PO SCH ×2 (09:11→21:08)
--- NOTE | 2016-08-09 10:04 | PN ---
Date/Time of Note Date/Time of Note DATE: 08/09/16 TIME: 10:01 OB Subjective Subjective Subjective Vital signs are stable she still complaining of generalized body itching currently on Actigall 300 mg 3 times daily per perinatologist recommendation planning to induce labor at 37 weeks which is tomorrow, plan of induction discussed with the patient. CAMILLE KEMP MD Aug 09, 2016 10:04
[2016-08-09] MEDS: DIPHENHYDRAMINE 50 MG CAP PO PRN ×2 (10:18→21:10)
[2016-08-10] MEDS: URSODIOL 300 MG CAP PO SCH ×2 (08:58→22:46)
--- NOTE | 2016-08-10 11:48 | QN ---
Documentation Comment Today she is 37 weeks per perinatologist recommendation she will be transferred from antepartum to labor and delivery room for induction of labor due to cholestasis of CAMILLE KEMP MD Aug 10, 2016 11:48
[2016-08-10] MEDS ORDERED: ACETAMINOPHEN/CODEINE #3 TAB PO PRN (19:00)
[2016-08-10] MEDS ORDERED: LIDOCAINE 1% (MPF) 30 ML INJ INJ PRN (19:00)
[2016-08-10] MEDS ORDERED: AMPICILLIN 2 GM/NS (PMX) 100 ML IV ONE (19:00)
[2016-08-10] MEDS ORDERED: IBUPROFEN 600 MG TAB PO PRN (19:00)
[2016-08-10] MEDS ORDERED: OXYTOCIN 30 UNITS/LR 500 ML IV PRN (19:00)
[2016-08-10] MEDS ORDERED: CARBOPROST 250 MCG INJ IM PRN (19:00)
[2016-08-10] MEDS ORDERED: BUTORPHANOL 2 MG INJ IV PRN (19:00)
[2016-08-10] MEDS ORDERED: DINOPROSTONE 10 MG VAG SUPP VAG ONE (19:00)
[2016-08-10] MEDS ORDERED: OXYTOCIN 30 UNITS/LR 500 ML IV SCH ×2 (19:00)
[2016-08-10] MEDS ORDERED: MISOPROSTOL 200 MCG TAB PR PRN (19:00)
[2016-08-10] MEDS ORDERED: METHYLERGONOVINE 0.2 MG INJ IM PRN (19:00)
[2016-08-10] MEDS ORDERED: DINOPROSTONE 10 MG VAG SUPP ONE (19:01)
[2016-08-10] MEDS: LACTATED RINGER'S 1,000 ML IV SCH (19:45)
[2016-08-10 20:58] LABS: ADD SCAN DIFF NO; BASOPHILS % 0.3 % (0.0-2.0); EOSINOPHILS % 0.4 % (0.0-7.0); HEMATOCRIT 32.2 % (37.0-47.0); HEMOGLOBIN 10.7 g/dl (12.0-16.0); LYMPHOCYTES # 1.9 10^3/ul (0.8-2.9); LYMPHOCYTES % 18.8 % (15.0-51.0); MEAN CORPUSCULAR HEMOGLOBIN 30.6 pg (29.0-33.0); MEAN CORPUSCULAR HGB CONC 33.2 g/dl (32.0-37.0); MEAN PLATELET VOLUME 10.8 fl (7.4-10.4); MONOCYTE # 0.5 10^3/ul (0.3-0.9); NEUTROPHIL # 7.5 10^3/ul (1.6-7.5); NEUTROPHILS % 74.2 % (39.0-77.0); PLATELET COUNT 337 10^3/UL (140-415); RED CELL DISTRIBUTION WIDTH 14.6 % (11.5-14.5); WHITE BLOOD COUNT 10.1 10^3/ul (4.8-10.8)
[2016-08-10 21:06] LABS: INR 0.91; PARTIAL THROMBOPLASTIN TIME 33.7 Sec (25.0-35.0); PROTIME 12.2 Sec (12.2-14.2)
[2016-08-10] MEDS ORDERED: LACTATED RINGER'S 1,000 ML IV PRN (23:00)
[2016-08-11] MEDS: AMPICILLIN 1 GM/NS (PMX) 50 ML IV SCH ×7 (01:24→21:34)
--- NOTE | 2016-08-11 07:55 | QN ---
Documentation Comment Afebrile vital signs are stable being induced for cholestasis of with Cervidil having some [id number] contraction cervix still long and closed plan of delivery process and induction was discussed with the patient questions answered. CAMILLE KEMP MD Aug 11, 2016 07:54
[2016-08-11] MEDS ORDERED: OXYTOCIN 30 UNITS/LR 500 ML IV SCH (09:30)
[2016-08-11] MEDS: OXYTOCIN 30 UNITS/LR 500 ML IV SCH (09:32)
[2016-08-11] MEDS: URSODIOL 300 MG CAP PO SCH ×2 (09:34→21:10)
[2016-08-11] MEDS: LACTATED RINGER'S 1,000 ML IV SCH ×4 (10:47→23:20)
[2016-08-11] MEDS ORDERED: LACTATED RINGER'S 1,000 ML IV ONE (23:13)
[2016-08-11] MEDS ORDERED: FENTAnyl 2MCG/ML-ROPIV 0.2% 100 ML ONE (23:19)
[2016-08-11] MEDS ORDERED: NALOXONE (0.4 MG/ML) INJ IV PRN (23:30)
[2016-08-11] MEDS ORDERED: CITRIC ACID/SODIUM CITRATE 15 ML CUP PO ONE (23:30)
[2016-08-11] MEDS ORDERED: morphine 2 MG INJ IV PRN ×2 (23:30)
[2016-08-11] MEDS ORDERED: ONDANSETRON 4 MG INJ IV ONE (23:30)
[2016-08-11] MEDS ORDERED: ONDANSETRON 4 MG INJ IV PRN (23:30)
[2016-08-11] MEDS ORDERED: KETOROLAC 30 MG INJ IV PRN (23:30)
[2016-08-11] MEDS ORDERED: FENTAnyl 2MCG/ML-ROPIV 0.2% 100 ML BAG EPI SCH (23:30)
[2016-08-11] MEDS ORDERED: PROCHLORPERAZINE 10 MG INJ IV PRN (23:30)
[2016-08-11] MEDS ORDERED: DIPHENHYDRAMINE 50 MG INJ IV PRN (23:30)
[2016-08-12] VITALS (12 sets, daily range): BP systolic 112–137; BP diastolic 58–78; PULSE 77–119; RESP 14–18
[2016-08-12] MEDS: AMPICILLIN 1 GM/NS (PMX) 50 ML IV SCH ×4 (01:33→11:00)
[2016-08-12] MEDS ORDERED: OXYTOCIN 30 UNITS/LR 500 ML BAG IV ONE (07:00)
[2016-08-12] MEDS ORDERED: CARBOPROST 250 MCG INJ ONE (07:00)
[2016-08-12] MEDS ORDERED: FAMOTIDINE 20 MG INJ IV ONE (08:00)
[2016-08-12] MEDS: URSODIOL 300 MG CAP PO SCH (09:00)
--- NOTE | 2016-08-12 09:40 | NSTRPT ---
NST Information Datetime Report Generated by CPN: 08/12/2016 09:40 Datetime: 08/06/2016 08:08 NST Information EGA: 36.3 Test Number: 5 Time on Monitor: 08/06/2016 08:25 Time off Monitor: 08/06/2016 09:05 NST Duration (Min): 40 Reason for NST: Cholestasis Test and Monitor Explained: Monitor Explained; Test Explained; Verbalized Understanding Pulse: 84 Resp: 17 SBP: 115 DBP: 74 Test Evaluation NST Interventions: Reposition Patient; Acoustic Stimulation Patient States Movement: Present Contraction Frequency: x2, denies FHR Baseline : 145 Variability: Moderate 6-25bpm Accelerations: 15X15 Decelerations: None FHR Category: Category I NST Results: Reactive Comments: To u/s, CARLA 14.1cm, cephalic [id number] undelivered with labor precautions, kick count instructions reviewed and follow u p NST appt given. States understanding and denies further questions at this time. Electronically Signed By E-Signature: with User ID: [id number] Datetime: 08/02/2016 08:14 NST Information EGA: 35.6 NST Duration (Min): 24 Datetime: 07/30/2016 08:05 NST Information EGA: 35.3 NST Duration (Min): 43 Datetime: 07/26/2016 08:38 NST Information EGA: 34.6 NST Duration (Min): 38 Datetime: 07/24/2016 09:14 NST Information EGA: 34.4 NST Duration (Min): 47
[2016-08-12] MEDS: LACTATED RINGER'S 1,000 ML IV SCH (09:53)
[2016-08-12] MEDS ORDERED: CEFAZOLIN 2 GM/50 ML (PMX) 50 ML IV SCH (11:00)
[2016-08-12] MEDS ORDERED: LIDOCAINE 2%/EPI 30 ML INJ ONE (11:05)
[2016-08-12] MEDS ORDERED: morphine SULFATE/PF (10 MG/10 ML) INJ ONE (11:05)
[2016-08-12] MEDS ORDERED: CITRIC ACID/SODIUM CITRATE 15 ML CUP ONE (11:17)
[2016-08-12] MEDS ORDERED: FENTAnyl 50 MCG/ML VIAL ONE (11:38)
[2016-08-12] MEDS ORDERED: METOCLOPRAMIDE 10 MG INJ ONE (11:50)
[2016-08-12] MEDS ORDERED: LIDOCAINE 2% (SDV) 5 ML INJ ONE (11:52)
[2016-08-12] MEDS ORDERED: PHENYLephrine (100 MCG/ML) 5ML SYG ONE (12:23)
--- NOTE | 2016-08-12 13:45 | QN ---
Documentation Comment This is a 26 years old female 1 para 0 EDC August 31, 2016 was admitted on August 06 at 36 weeks and 4 days of referred from NST clinic due to category 2 and 3 heart tracing at 37 weeks patient transferred from antepartum unit to L&D to induce labor due to cholestasis of and -induced hypertension she underwent Cervidil induction which followed with Pitocin IV infusion drip , during the induction, noted category 2 and 3 heart tracing , this was discussed with her, all questions answered regarding primary , for nonreassuring heart tracing ,complication of section including but not limited to bowel and bladder injury infection hemorrhage and hematoma and she decided to proceed with the operation CAMILLE KEMP MD Aug 12, 2016 13:45
[2016-08-12] MEDS ORDERED: DIPHENHYDRAMINE 50 MG INJ IV PRN ×2 (14:00)
[2016-08-12] MEDS ORDERED: ONDANSETRON 4 MG INJ IV PRN ×3 (14:00→15:00)
[2016-08-12] MEDS ORDERED: HYDROmorphONE (0.2 MG/ML) 10ML SYG IV PRN ×6 (14:00→15:00)
[2016-08-12] MEDS ORDERED: NALOXONE (0.4 MG/ML) INJ IV PRN (14:00)
[2016-08-12] MEDS ORDERED: METOCLOPRAMIDE 10 MG INJ IV PRN (14:00)
[2016-08-12] MEDS ORDERED: MEPERIDINE 25 MG INJ IV PRN (14:00)
[2016-08-12] MEDS ORDERED: HYDROmorphONE 1 MG/ML SYG IV PRN ×3 (14:00)
[2016-08-12] MEDS ORDERED: CITRIC ACID/SODIUM CITRATE 15 ML CUP PO ONE (14:00)
--- NOTE | 2016-08-12 14:29 | OPR ---
DATE OF OPERATION: 08/12/2016 PREOPERATIVE DIAGNOSES: Intrauterine at 37 weeks and 2 days. complicated with cholestasis, category 2/category 3 heart tracing, not anticipating a timely delivery. POSTOPERATIVE DIAGNOSES: Intrauterine at 37 weeks and 2 days. complicated with cholestasis, category 2/category 3 heart tracing, not anticipating a timely delivery. OPERATION PERFORMED: Primary transverse low cervical section. SURGEON: Camille Garner MD AIR TURNING MACHINE FEEDER: Kayleen Mills MD ANESTHESIA: Epidural. ANESTHESIOLOGIST: Ana Garcia MD FINDINGS: Live baby girl with the 8 and 9. DETAILS OF THE PROCEDURE: Under satisfactory spinal anesthesia, the patient was prepped and draped and placed in supine position, tilted to the left. Pfannenstiel incision was made, carried through the subcutaneous tissue. Bleeders brought under control with electrocautery. Fascia incised to the length of the incision. Rectus muscle divided in midline. Peritoneum exposed, entered through a transverse incision. Exploration of abdomen, abundant amount of the peritoneal fluid, and evidence of labor. Bladder flap was developed. Transverse incision was made in the lower segment of the uterus. Amniotic sac ruptured. Clear amniotic fluid noted. Live baby girl was delivered from unengaged vertex from occiput posterior. Nasal oropharyngeal suction was performed. Baby handed to the team for immediate attention. The patient received 20 units of Pitocin. Placenta delivered manually intact. Uterine cavity cleaned with wet sponge and drainage established. Uterus closed in 2 layers using Monocryl #1 in continuous fashion. Peritoneal cavity irrigated with warm saline. Sponge, needle and instruments reported to be correct. Abdominal peritoneum closed with 2-0 chromic catgut continuously. Rectus muscle approximated with 3 interrupted 2-0 chromic catgut. Fascia closed with #1 PDS in a continuous fashion. Subcutaneous tissue approximated with 2-0 chromic catgut. The skin closed with laverne. Estimated blood loss 600 mL. Urine bag contained 200 mL of clear urine. The patient tolerated the procedure well, transferred to recovery room in a good condition. Dictated By: CAMILLE BHANDARI/NTS Conf#: [id number] DID#: [id number] [facility] CENTERCindy
[2016-08-12] MEDS ORDERED: SUCCINYLCHOLINE CHLORIDE 100 MG/5 ML SYG IV ONE (15:16)
[2016-08-12] MEDS ORDERED: PROPOFOL 40 ML ONE (15:16)
[2016-08-12] MEDS: OXYTOCIN 30 UNITS/LR 500 ML IV SCH ×4 (16:59→20:39)
[2016-08-12] MEDS ORDERED: CEFAZOLIN 1 GM/50 ML (PMX) 50 ML IVPB SCH ×2 (17:00→20:00)
[2016-08-12] MEDS ORDERED: OXYTOCIN 30 UNITS/LR 500 ML IV PRN (17:00)
[2016-08-12] MEDS ORDERED: CARBOPROST 250 MCG INJ IM PRN (17:00)
[2016-08-12] MEDS ORDERED: ACETAMINOPHEN/CODEINE #3 TAB PO PRN ×2 (17:00)
[2016-08-12] MEDS ORDERED: MISOPROSTOL 200 MCG TAB PR PRN (17:00)
[2016-08-12] MEDS ORDERED: METHYLERGONOVINE 0.2 MG INJ IM PRN (17:00)
[2016-08-12] MEDS ORDERED: LANOLIN 7 GM TUBE TOP PRN (17:00)
[2016-08-12] MEDS: SENNA/DOCUSATE NA (8.6MG/50MG) TAB PO SCH (21:00)
[2016-08-12] MEDS: KETOROLAC 30 MG INJ IV PRN (23:19)
[2016-08-13] MEDS: LACTATED RINGER'S 1,000 ML IV SCH ×2 (01:07→08:51)
[2016-08-13 03:56] VITALS: BP 102/52; PULSE 83; RESP 18
[2016-08-13 08:00] VITALS: BP 116/71; PULSE 103; RESP 18
[2016-08-13 08:15] LABS: ADD SCAN DIFF NO
[2016-08-13 08:20] LABS: ABNORMAL IP MESSAGE 1; BASOPHILS % 0.2 % (0.0-2.0); EOSINOPHILS % 0.2 % (0.0-7.0); HEMATOCRIT 20.1 % (37.0-47.0); LYMPHOCYTES # 1.5 10^3/ul (0.8-2.9); LYMPHOCYTES % 12.1 % (15.0-51.0); MEAN CORPUSCULAR HEMOGLOBIN 29.9 pg (29.0-33.0); MEAN CORPUSCULAR HGB CONC 32.8 g/dl (32.0-37.0); MEAN PLATELET VOLUME 9.9 fl (7.4-10.4); MONOCYTE # 0.7 10^3/ul (0.3-0.9); MONOCYTES % 5.4 % (0.0-11.0); NEUTROPHIL # 9.8 10^3/ul (1.6-7.5); NEUTROPHILS % 81.6 % (39.0-77.0); PLATELET COUNT 200 10^3/UL (140-415); RED BLOOD COUNT 2.21 10^6/ul (4.20-5.40); RED CELL DISTRIBUTION WIDTH 14.7 % (11.5-14.5)
[2016-08-13 08:26] LABS: HEMOGLOBIN 6.6 g/dl (12.0-16.0)
[2016-08-13] MEDS: SENNA/DOCUSATE NA (8.6MG/50MG) TAB PO SCH ×2 (08:51→21:00)
[2016-08-13] MEDS: OXYTOCIN 30 UNITS/LR 500 ML IV SCH ×5 (08:52→20:59)
--- NOTE | 2016-08-13 10:46 | PN ---
Date/Time of Note Date/Time of Note DATE: 08/13/16 TIME: 10:43 OB Subjective Subjective Subjective Post day 1 Afebrile vital signs stable abdomen soft able to pass flatus with bowel sounds present lochia moderate extremity normal hemoglobin 6.6, transfusion discussed with the patient decided once patient ambulating if she feels, not lightheaded or dizzy she would prefer not to have the transfusion if those symptoms are positive then the plan is to transfuse her with 2 units of packed cells CAMILLE KEMP MD Aug 13, 2016 10:46
[2016-08-13] MEDS: KETOROLAC 30 MG INJ IV PRN (11:48)
[2016-08-13] MEDS: OXYCODONE/ACETAMINOPHEN (5/325) TAB PO PRN ×2 (14:04→19:28)
[2016-08-13 14:20] LABS: HEMOGLOBIN 7.1 g/dl (12.0-16.0)
[2016-08-13 16:15] VITALS: BP 120/66; PULSE 88; RESP 18
[2016-08-13] MEDS: IBUPROFEN 600 MG TAB PO SCH ×2 (17:20→23:31)
[2016-08-13] MEDS ORDERED: IBUPROFEN 600 MG TAB PO SCH (18:00)
[2016-08-13 19:28] VITALS: BP 123/69; PULSE 87; RESP 17
--- NOTE | 2016-08-13 21:33 | PN ---
Date/Time of Note Date/Time of Note DATE: 08/13/16 TIME: 21:28 Assessment/Plan VTE Prophylaxis VTE Prophylaxis Intervention: ambulation Lines/Catheters IV Catheter Type (from Nrsg): Peripheral IV Subjective 24 Hr Interval Summary Free Text/Dictation Anesthesia note: A 26 year old female pod#1 with spinal duramorph, is doing fine , no n/v, headache, back pain, itching. pain is controlled. Exam/Review of Systems Vital Signs Vitals Vital Signs Date Time Temp Pulse Resp B/P Pulse Ox O2 Delivery O2 Flow Rate FiO2 08/13/16 16:15 98.2 88 18 120/66 08/13/16 11:48 Room Air 08/13/16 03:30 96 21 08/12/16 14:57 3.0 Intake and Output 08/12/16 08/12/16 08/13/16 14:59 22:59 06:59 Intake Total 1111.5 ml 800 ml 500 ml Output Total 950 ml 50 ml 600 ml Balance 161.5 ml 750 ml -100 ml Results Result Diagram: 08/13/16 1335 Results 24 hrs Laboratory Tests Test 08/13/16 08:10 08/13/16 13:35 White Blood Count 12.0 H Red Blood Count 2.21 #L Hemoglobin 6.6 #*L 7.1 L Hematocrit 20.1 #L 21.0 L Mean Corpuscular Volume 91.0 Mean Corpuscular Hemoglobin 29.9 Mean Corpuscular Hemoglobin Concent 32.8 Red Cell Distribution Width 14.7 H Platelet Count 200 # Mean Platelet Volume 9.9 Neutrophils % 81.6 H Lymphocytes % 12.1 L Monocytes % 5.4 Eosinophils % 0.2 Basophils % 0.2 Nucleated Red Blood Cells % 0.0 Neutrophils # 9.8 H Lymphocytes # 1.5 Monocytes # 0.7 Eosinophils # 0.0 Basophils # 0.0 Nucleated Red Blood Cells # 0.0 Medications Medications Current Medications Acetaminophen/ Codeine Phosphate (Tylenol No.3) 1 tab Q4H PRN PO PAIN LEVEL 4-6 ; Start 08/12/16 at 17:00 Acetaminophen/ Codeine Phosphate (Tylenol No.3) 2 tab Q4H PRN PO PAIN LEVEL 7- 10; Start 08/12/16 at 17:00 Oxycodone/ Acetaminophen (Percocet (5/ 325)) 1 tab Q4H PRN PO PAIN LEVEL 4-6; Start 08/12/16 at 17:00 Oxycodone/ Acetaminophen (Percocet (5/ 325)) 2 tab Q4H PRN PO PAIN LEVEL 7-10 Last administered on 08/13/16 19:28; Admin Dose 2 TAB; Start 08/12/16 at 17:00 Ibuprofen (Motrin) 600 mg Q6 PO Last administered on 08/13/16 17:20; Admin Dose 600 MG; Start 08/13/16 at 18:00 Simethicone (Mylicon) 160 mg Q8H PRN PO DISTENSION/GAS/BLOATING Last administered on 08/13/16 00:09; Admin Dose 160 MG; Start 08/12/16 at 17:00 Senna/Docusate Sodium (Senokot-S) 1 tab BID PO Last administered on 08/13/16 08:51; Admin Dose 1 TAB; Start 08/12/16 at 21:00 Diphtheria/ Tetanus/Acell Pertussis 0.5 ml 0.5 ml ONCE ONCE IM* ; Start at 09:00; Stop 08/15/16 at 09:01 Oxytocin/Lactated Ringer's 500 ml @ 0 mls/hr ONCE PRN IV For Hemorrhage Management; Start 08/12/16 at 17:00 Methylergonovine Maleate (Methergine) 0.2 mg ONCE PRN IM VAGINAL BLEEDING; Start 08/12/16 at 17:00 Carboprost Tromethamine (Hemabate) 250 mcg ONCE PRN IM VAGINAL BLEEDING; Start 08/12/16 at 17:00 Misoprostol 1000 mcg 1,000 mcg ONCE PRN SD VAGINAL BLEEDING; Start 08/12/16 at 17:00 Oxytocin/Lactated Ringer's 500 ml @ 125 mls/hr Q4H IV Last administered on 20:39; Admin Dose 125 MLS/HR; Start 08/12/16 at 16:59 RONNIE SAUNDERS MD Aug 13, 2016 21:33
[2016-08-14 04:00] VITALS: BP 102/62; PULSE 83; RESP 19
[2016-08-14] MEDS: IBUPROFEN 600 MG TAB PO SCH ×4 (05:59→23:35)
[2016-08-14 07:38] LABS: ADD SCAN DIFF NO
[2016-08-14 07:51] LABS: ABNORMAL IP MESSAGE 1; HEMATOCRIT 19.7 % (37.0-47.0); MEAN CORPUSCULAR HEMOGLOBIN 30.7 pg (29.0-33.0); MEAN CORPUSCULAR VOLUME 92.9 fl (82.0-101.0); MEAN PLATELET VOLUME 9.9 fl (7.4-10.4); PLATELET COUNT 223 10^3/UL (140-415); RED BLOOD COUNT 2.12 10^6/ul (4.20-5.40); RED CELL DISTRIBUTION WIDTH 14.9 % (11.5-14.5); WHITE BLOOD COUNT 11.7 10^3/ul (4.8-10.8)
[2016-08-14 07:56] LABS: HEMOGLOBIN 6.5 g/dl (12.0-16.0)
[2016-08-14 08:00] VITALS: BP 104/51; PULSE 82; RESP 18
[2016-08-14 10:00] LABS: EOSINOPHILS # 0.4 10^3/ul (0.0-0.5); LYMPHOCYTES # 1.2 10^3/ul (0.8-2.9); MONOCYTE # 0.8 10^3/ul (0.3-0.9); NEUTROPHIL # 9.4 10^3/ul (1.6-7.5)
[2016-08-14] MEDS: SENNA/DOCUSATE NA (8.6MG/50MG) TAB PO SCH ×2 (10:59→21:00)
[2016-08-14] MEDS: OXYCODONE/ACETAMINOPHEN (5/325) TAB PO PRN ×2 (11:52→20:05)
[2016-08-14 12:00] VITALS: BP 110/52; PULSE 86; RESP 18
[2016-08-14 16:00] VITALS: BP 128/44; PULSE 85; RESP 18
--- NOTE | 2016-08-14 17:59 | PN ---
Date/Time of Note Date/Time of Note DATE: 08/14/16 TIME: 17:55 OB Subjective Subjective Subjective Day 2 post Vital signs are stable patient is not lightheaded ambulates comfortably with a hemoglobin of 6.5 hematocrit of 19.7 option of transfusion 2 units of packed cells discussed with the patient declined, she was placed on ferrous sulfate, Laboratory Tests Test 08/14/16 07:25 White Blood Count 11.710^3/ul Red Blood Count 2.1210^6/ul Hemoglobin 6.5g/dl Hematocrit 19.7% Mean Corpuscular Volume 92.9fl Mean Corpuscular Hemoglobin 30.7pg Mean Corpuscular Hemoglobin Concent 33.0g/dl Red Cell Distribution Width 14.9% Platelet Count 57925^3/UL Mean Platelet Volume 9.9fl Neutrophils % 80.0% Lymphocytes % 10.0% Monocytes % 7.0% Eosinophils % 3.0% Neutrophils # 9.410^3/ul Lymphocytes # 1.210^3/ul Monocytes # 0.810^3/ul Eosinophils # 0.410^3/ul Current Medications Medications (Trade) Dose Ordered Sig/Swathi Route PRN Reason Start Time Stop Time Status Last Admin Dose Admin Lactated Ringer's (Lr) 1,000 ml @ 125 mls/hr Q8H IV 08/06/16 12:45 08/07/16 10:11 DC 08/07/16 05:07 Ursodiol (Actigall) 300 mg BID PO 08/06/16 16:00 08/12/16 17:08 DC 08/11/16 21:10 Al Hydrox/Mg Hydrox/Simethicone (Mag-Al Plus) 30 ml Q4H PRN PO GASTROINTESTINAL UPSET 08/07/16 18:00 08/12/16 17:08 DC Diphenhydramine HCl 50 mg 50 mg Q6H PRN PO ITCHING 08/09/16 10:00 08/12/16 17:08 DC 08/09/16 21:10 Lactated Ringer's 1,000 ml @ 125 mls/hr Q8H IV 08/10/16 18:47 08/12/16 17:08 DC 08/12/16 09:53 Ampicillin 100 ml @ 100 mls/hr ONCE ONCE IV 08/10/16 19:00 08/10/16 21:30 DC 08/10/16 21:32 Ampicillin (Ampicillin 1 Gm/ NS (Pmx)) 50 ml @ 100 mls/hr Q4H IV 08/10/16 19:00 08/12/16 17:08 DC 08/12/16 09:54 Dinoprostone 10 mg 10 mg ONCE ONCE VAG 08/10/16 19:00 08/10/16 21:30 DC 08/10/16 20:00 Oxytocin/Lactated Ringer's 500 ml @ 0 mls/hr TITRATE IV 08/10/16 19:00 08/12/16 17:08 DC 08/12/16 17:03 Butorphanol Tartrate (Stadol) 2 mg Q2H PRN IV PAIN 08/10/16 19:00 08/12/16 17:08 DC Lidocaine 30 ml 30 ml ONCE PRN INJ EPISIOTOMY/TEARING 08/10/16 19:00 08/12/16 17:08 DC Oxytocin/Lactated Ringer's 500 ml @ 125 mls/hr ONCE -MAY REPEAT X1 IV 08/10/16 19:00 08/12/16 17:08 DC 08/12/16 12:49 Oxytocin/Lactated Ringer's 500 ml @ 125 mls/hr ONCE IV 08/10/16 19:00 08/12/16 17:08 DC Ibuprofen (Motrin) 600 mg ONCE PRN PO Mild Pain (Pain Score 1-3) 08/10/16 19:00 08/12/16 17:08 DC Acetaminophen/ Codeine Phosphate 2 tab 2 tab ONCE PRN PO Moderate to Severe Pain (4-10) 08/10/16 19:00 08/12/16 17:08 DC Lactated Ringer's 1,000 ml 2300 PRN IV PRE-EPIDURAL BOLUS 08/10/16 23:00 UNV Oxytocin/Lactated Ringer's 500 ml @ 0 mls/hr ONCE PRN IV For Hemorrhage Management 08/10/16 19:00 08/12/16 17:08 DC Methylergonovine Maleate (Methergine) 0.2 mg ONCE PRN IM VAGINAL BLEEDING 08/10/16 19:00 08/12/16 17:08 DC Carboprost Tromethamine (Hemabate) 250 mcg ONCE PRN IM VAGINAL BLEEDING 08/10/16 19:00 08/12/16 17:08 DC Misoprostol (Cytotec) 1,000 mcg ONCE PRN CO VAGINAL BLEEDING 08/10/16 19:00 08/12/16 17:08 DC Dinoprostone 10 mg 10 mg STK-MED ONCE .ROUTE 08/10/16 19:01 08/10/16 19:18 DC Oxytocin/Lactated Ringer's 500 ml @ 0 mls/hr Q0M IV 08/11/16 09:30 08/12/16 17:08 DC Naloxone HCl (Narcan) 0.1 mg Q2M PRN IV FOR RESP RATE 8 OR LESS 08/11/16 23:30 08/12/16 17:08 DC Ketorolac Tromethamine (Toradol) 30 mg Q6H PRN IV PAIN 08/11/16 23:30 08/12/16 13:48 DC Morphine Sulfate (morphine) 2 mg Q3H PRN IV PAIN LEVEL 1-5 08/11/16 23:30 08/12/16 23:29 DC Morphine Sulfate (morphine) 4 mg Q3H PRN IV PAIN LEVEL 6-10 08/11/16 23:30 08/12/16 23:29 DC Diphenhydramine HCl (Benadryl) 25 mg Q6H PRN IV ITCHING 08/11/16 23:30 08/12/16 13:49 DC Ondansetron HCl (Zofran Inj) 4 mg Q6H PRN IV NAUSEA AND/OR VOMITING 08/11/16 23:30 08/12/16 13:49 DC Prochlorperazine (Compazine Inj) 10 mg ONCE PRN IV NAUSEA AND/OR VOMITING 08/11/16 23:30 08/12/16 23:29 DC Fentanyl/ Ropivacaine 100 ml 100 ml EPIDURAL INFUSION EPI 08/11/16 23:30 08/12/16 17:08 DC 08/12/16 06:17 Lactated Ringer's (Lr) 1,000 ml @ 1,000 mls/hr Q1H ONCE IV 08/11/16 23:13 08/12/16 00:12 DC Ondansetron HCl (Zofran Inj) 4 mg pre-procedure ONCE IV 08/11/16 23:30 08/11/16 23:32 DC Citric Acid/ Sodium Citrate 30 ml 30 ml PRE-PROCEDURE ONCE PO 08/11/16 23:30 08/11/16 23:32 DC Fentanyl/ Ropivacaine 100 ml @ ud STK-MED ONCE .ROUTE 08/11/16 23:19 08/11/16 23:20 DC Famotidine 20 mg 20 mg ONCE ONCE IV 08/12/16 08:00 08/12/16 08:01 DC 08/12/16 08:36 Cefazolin Sodium/ Dextrose (Ancef 2 Gm/50 ml (Pmx)) 50 ml @ 100 mls/hr ONCE IV 08/12/16 11:00 08/12/16 17:08 DC Lidocaine/ Epinephrine (Xylocaine 2%/ Epi) 30 ml STK-MED ONCE .ROUTE 08/12/16 11:05 08/12/16 11:06 DC Morphine Sulfate (Duramorph) 10 mg STK-MED ONCE .ROUTE 08/12/16 11:05 08/12/16 11:06 DC Citric Acid/ Sodium Citrate (Bicitra) 15 ml STK-MED ONCE .ROUTE 08/12/16 11:17 08/12/16 11:18 DC Fentanyl (Sublimaze) 100 mcg STK-MED ONCE .ROUTE 08/12/16 11:38 08/12/16 11:39 DC Metoclopramide HCl (Reglan) 10 mg STK-MED ONCE .ROUTE 08/12/16 11:50 08/12/16 11:51 DC Lidocaine (Xylocaine 2% (Sdv)) 100 mg STK-MED ONCE .ROUTE 08/12/16 11:52 08/12/16 11:53 DC Phenylephrine HCl (Zachary-Synephrine Inj Syg) 500 mcg STK-MED ONCE .ROUTE 08/12/16 12:23 08/12/16 12:24 DC Citric Acid/ Sodium Citrate (Bicitra) 30 ml PRE-PROCEDURE ONCE PO 08/12/16 14:00 08/12/16 17:15 DC Diphenhydramine HCl (Benadryl) 25 mg PACU ORDER PRN IV PRURITUS 08/12/16 14:00 08/12/16 17:08 DC Diphenhydramine HCl (Benadryl) 25 mg Q6H PRN IV ITCHING 08/12/16 14:00 08/13/16 13:59 DC Hydromorphone HCl (Dilaudid (Rec)) 0.2 mg PACU ORDER PRN IV MILD PAIN LEVEL 1-3 08/12/16 14:00 08/12/16 17:08 DC Hydromorphone HCl (Dilaudid (Rec)) 0.4 mg PACU ORDER PRN IV MODERATE PAIN LEVEL 4-6 08/12/16 14:00 08/12/16 17:08 DC Hydromorphone HCl (Dilaudid (Rec)) 0.6 mg PACU ORDER PRN IV SEVERE PAIN LEVEL 7-10 08/12/16 14:00 08/12/16 17:08 DC Hydromorphone HCl (Dilaudid) 1 mg Q3H PRN IV BREAKTHROUGH PAIN 08/12/16 14:00 08/13/16 13:59 DC Hydromorphone HCl (Dilaudid) 0.2 mg Q3H PRN IV PAIN LEVEL 1-5 08/12/16 14:00 08/13/16 13:59 DC Hydromorphone HCl (Dilaudid) 0.4 mg Q3H PRN IV PAIN LEVEL 6-10 08/12/16 14:00 08/13/16 13:59 DC Ketorolac Tromethamine (Toradol) 30 mg Q6H PRN IV PAIN 08/12/16 14:00 08/13/16 13:59 DC 08/13/16 11:48 Meperidine HCl (Demerol) 25 mg PACU ORDER PRN IV POST-OP RIGORS 08/12/16 14:00 08/12/16 17:08 DC Metoclopramide HCl (Reglan) 10 mg PACU ORDER PRN IV NAUSEA AND/OR VOMITING 08/12/16 14:00 08/12/16 17:08 DC Naloxone HCl (Narcan) 0.1 mg Q2M PRN IV FOR RESP RATE 8 OR LESS 08/12/16 14:00 08/13/16 13:59 DC Ondansetron HCl (Zofran Inj) 4 mg PACU ORDER PRN IV NAUSEA AND/OR VOMITING 08/12/16 14:00 08/12/16 17:08 DC Ondansetron HCl (Zofran Inj) 4 mg Q6H PRN IV NAUSEA AND/OR VOMITING 08/12/16 14:00 08/13/16 13:59 DC Hydromorphone HCl (Dilaudid (Rec)) 0.2 mg PACU ORDER PRN IV MILD PAIN LEVEL 1-3 08/12/16 15:00 08/12/16 17:08 DC Hydromorphone HCl (Dilaudid (Rec)) 0.4 mg PACU ORDER PRN IV MODERATE PAIN LEVEL 4-6 08/12/16 15:00 08/12/16 17:08 DC Hydromorphone HCl (Dilaudid (Rec)) 0.6 mg PACU ORDER PRN IV SEVERE PAIN LEVEL 7-10 08/12/16 15:00 08/12/16 17:08 DC Ondansetron HCl (Zofran Inj) 4 mg PACU ORDER PRN IV NAUSEA AND/OR VOMITING 08/12/16 15:00 08/12/16 17:08 DC Succinylcholine Chloride 100 mg 100 mg STK-MED ONCE IV 08/12/16 15:16 08/12/16 15:17 DC Propofol (Diprivan) 40 ml @ ud STK-MED ONCE .ROUTE 08/12/16 15:16 08/12/16 15:17 DC Acetaminophen/ Codeine Phosphate (Tylenol No.3) 1 tab Q4H PRN PO PAIN LEVEL 4-6 08/12/16 17:00 Acetaminophen/ Codeine Phosphate (Tylenol No.3) 2 tab Q4H PRN PO PAIN LEVEL 7-10 08/12/16 17:00 Oxycodone/ Acetaminophen (Percocet (5/ 325)) 1 tab Q4H PRN PO PAIN LEVEL 4-6 08/12/16 17:00 08/14/16 11:52 Oxycodone/ Acetaminophen (Percocet (5/ 325)) 2 tab Q4H PRN PO PAIN LEVEL 7-10 08/12/16 17:00 08/13/16 19:28 Ibuprofen (Motrin) 600 mg Q6 PO 08/13/16 18:00 08/14/16 11:52 Simethicone (Mylicon) 160 mg Q8H PRN PO DISTENSION/GAS/BLOATING 08/12/16 17:00 08/13/16 00:09 Senna/Docusate Sodium (Senokot-S) 1 tab BID PO 08/12/16 21:00 08/14/16 10:59 Lanolin (Wyj-D-Dfmciv) 1 applic BEDSIDE MEDICATION PRN TOP BEDSIDE FOR SHELLY TO NIPPLES 08/12/16 17:00 08/12/16 20:39 Diphtheria/ Tetanus/Acell Pertussis 0.5 ml 0.5 ml ONCE ONCE IM* 08/15/16 09:00 08/15/16 09:01 Oxytocin/Lactated Ringer's 500 ml @ 0 mls/hr ONCE PRN IV For Hemorrhage Management 08/12/16 17:00 Methylergonovine Maleate (Methergine) 0.2 mg ONCE PRN IM VAGINAL BLEEDING 08/12/16 17:00 Carboprost Tromethamine (Hemabate) 250 mcg ONCE PRN IM VAGINAL BLEEDING 08/12/16 17:00 Misoprostol 1000 mcg 1,000 mcg ONCE PRN CO VAGINAL BLEEDING 08/12/16 17:00 Cefazolin Sodium 50 ml @ 100 mls/hr ONCE IVPB 08/12/16 17:00 08/12/16 17:11 DC Oxytocin/Lactated Ringer's 500 ml @ 125 mls/hr Q4H IV 08/12/16 16:59 08/13/16 23:10 DC 08/12/16 20:39 Cefazolin Sodium (Ancef 1 Gm/50 ml (Pmx)) 50 ml @ 100 mls/hr ONCE IVPB 08/12/16 20:00 08/12/16 20:29 DC 08/12/16 20:35 Ibuprofen 600 mg 600 mg Q6 PO 08/13/16 18:00 08/13/16 18:00 DC Lactated Ringer's (Lr) 1,000 ml @ 125 mls/hr Q8H IV 08/13/16 01:00 08/13/16 16:27 DC 08/13/16 08:51 Oxytocin/Lactated Ringer's 30 unit STK-MED ONCE IV 08/12/16 07:00 08/13/16 22:08 DC Carboprost Tromethamine (Hemabate) 250 mcg STK-MED ONCE .ROUTE 08/12/16 07:00 08/13/16 22:08 DC plan of a.m. discharge discussed with the patient CAMILLE KEMP MD Aug 14, 2016 17:58
[2016-08-14 20:00] VITALS: BP 113/61; PULSE 79; RESP 19
[2016-08-15 03:30] VITALS: BP 117/60; PULSE 78; RESP 19
[2016-08-15] MEDS: IBUPROFEN 600 MG TAB PO SCH ×3 (06:00→09:04)
[2016-08-15 08:15] VITALS: BP 132/79; PULSE 77; RESP 18
[2016-08-15] MEDS ORDERED: DIPHTH/TET/ACEL PERTUSS (ADULT) 0.5 ML VIAL IM* ONE (09:00)
[2016-08-15] MEDS: SENNA/DOCUSATE NA (8.6MG/50MG) TAB PO SCH ×2 (09:00→21:22)
--- NOTE | 2016-08-15 13:10 | PN ---
Date/Time of Note Date/Time of Note DATE: 08/15/16 TIME: 13:09 OB Subjective Subjective Subjective Afebrile vital signs abdomen soft good bowel sounds had normal bowel movement hemoglobin 6.6 hematocrit 19.7 patient denies being lightheaded while ambulating states she feels stable and confident in walking 2 units of packed cells transfusion discussed with the patient she declined CAMILLE KEMP MD Aug 15, 2016 13:10
[2016-08-15 16:00] VITALS: BP 128/75; PULSE 76; RESP 18
[2016-08-15 19:50] VITALS: BP 139/75; PULSE 76; RESP 19
[2016-08-15] MEDS: OXYCODONE/ACETAMINOPHEN (5/325) TAB PO PRN (21:25)
[2016-08-16 04:00] VITALS: BP 113/75; PULSE 70; RESP 19
[2016-08-16] MEDS: IBUPROFEN 600 MG TAB PO SCH ×3 (05:47→12:36)
[2016-08-16 08:00] VITALS: BP 127/70; PULSE 66; RESP 18
[2016-08-16] MEDS: SENNA/DOCUSATE NA (8.6MG/50MG) TAB PO SCH (09:01)
[2016-08-16] MEDS: OXYCODONE/ACETAMINOPHEN (5/325) TAB PO PRN (09:01)
--- NOTE | 2016-08-16 15:56 | PD.PPDC ---
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
--- NOTE | 2016-08-16 16:04 | DS ---
Date/Time of Note Date/Time of Note DATE: 08/16/16 TIME: 15:58 Discharge Summary Admission/Discharge Info Admit Date/Time Aug 06, 2016 at 13:09 Discharge Date/Time August 16, 2016 at 1555 Discharge Diagnosis Post date 3 patient's was complicated with gestational of and -induced hypertension Patient Condition: Good Procedures Primary section Hx of Present Illness 36 weeks plus gestation suspected cholestasis of , -induced hypertension date 3 post Hospital Course Satisfactory uneventful Home Meds Reported Medications Diphenhydramine HCl (Benadryl) 25 Mg Capsule, 25 MG PO Y for PRURITUS, CAP 08/02/16 Ursodiol* (Actigall*) 300 Mg Cap, 300 MG PO TID, #90 CAP 07/13/16 Multivit/Min/Fol Ac/Iron/Pren* ( S*) 1 Tab Tab, 1 TAB PO DAILY, TAB 07/13/16 Follow-up Plan Appointment clinic in 4 days for post surgery follow-up Primary Care Provider [facility] Time spent on discharge: < 30 minutes CAMILLE KEMP MD Aug 16, 2016 16:04
== END 2016-08-16 16:40 | disposition home or self-care (01) | DRG 765 ==
LOC: OBT 11:49 → L-D 11:51 → OBG 13:03 → OBT 13:04 → OBG 13:09 → L-D 08-10 15:57 → PP1 08-12 15:57
PROVIDERS: ADMIT Obstetrics & Gynecology; ATTEND Obstetrics & Gynecology
PROC: 3E0P7GC Introduction of Other Therapeutic Substance into Female Reproductive, Via Natural or Artificial Opening (ICD-10-PCS; 2016-08-11)
PROC: 10D00Z1 Extraction of Products of Conception, Low, Open Approach (ICD-10-PCS; principal; 2016-08-12 12:00)
DX: O26.62 Liver and biliary tract disorders in childbirth (principal); K83.1 Obstruction of bile duct; O13.4 Gestational [pregnancy-induced] hypertension without significant proteinuria, complicating childbirth; O76 Abnormality in fetal heart rate and rhythm complicating labor and delivery; Z3A.37 37 weeks gestation of pregnancy; Z37.0 Single live birth
CPT/HCPCS: 62319; 80053; 81001; 82575; 84156; 84560; 85014; 85018; 85025; 85384; 85610; 85730; 86592; 86900; 86901; 87340; 88307; 90715; 94760; G0463; J0690; J1885; J2274; J2370; J2590; J2765; J3010; J7120; J7999